=== PATIENT | female | born 1940 | race Caucasian/White ===

== ENCOUNTER 2020-02-27 01:07 | Inpatient (IN) | payer OTHER ==
[~2020-02-27] VITALS: Ht 152.4 cm; Wt 72.6 kg
[2020-02-27] MEDS ORDERED: COZAAR100 MG (01:21)
[2020-02-27] MEDS ORDERED: LEVOTHYROXINE25 MCG (01:21)
== END 2020-03-07 12:03 | disposition expired | DRG 311 ==
LOC: ER 01:07 → MEDI 12:35
PROVIDERS: ADMIT Internal Medicine; ATTEND Internal Medicine
PROC: B246ZZZ Ultrasonography of Right and Left Heart (ICD-10-PCS; principal; 2020-02-27)
PROC: 4A033R1 Measurement of Arterial Saturation, Peripheral, Percutaneous Approach (ICD-10-PCS; 2020-02-27)
PROC: 4A12X4Z Monitoring of Cardiac Electrical Activity, External Approach (ICD-10-PCS; 2020-02-27)
PROC: 0BH17EZ Insertion of Endotracheal Airway into Trachea, Via Natural or Artificial Opening (ICD-10-PCS; 2020-03-07)
DX: I24.9 Acute ischemic heart disease, unspecified (principal); I50.20 Unspecified systolic (congestive) heart failure; I35.0 Nonrheumatic aortic (valve) stenosis; I25.110 Atherosclerotic heart disease of native coronary artery with unstable angina pectoris; I11.0 Hypertensive heart disease with heart failure; R07.89 Other chest pain; Z20.828 Contact with and (suspected) exposure to other viral communicable diseases